=== PATIENT | female | born 1945 | race Caucasian/White ===

== ENCOUNTER 2016-08-06 10:15 | Emergency (ER) | payer MEDICARE, OTHER ==
--- NOTE | 2016-08-06 10:40 | EDPRACDOC ---
- General Information Chief Complaint: Neuro Symptoms/Deficits Stated Complaint: STROLE LIKE SYMPTOMS Time Seen by Provider: 08/06/16 10:30 Home Medications: Home Medications Ezetimibe [Zetia] 10 mg PO DAILY 04/02/14 Isosorbide Mononitrate [Imdur] 30 mg PO DAILY 04/02/14 Lisinopril/Hydrochlorothiazide [Zestoretic 20-12.5 mg Tablet] 1 tab PO DAILY Metoprolol Succinate [Toprol Xl] 50 mg PO DAILY 04/02/14 Aspirin 325 mg PO DAILYWM #100 tab 04/03/14 Citalopram (anti-depressant) [Celexa] 20 mg PO DAILY 07/10/15 Metformin HCl [Glucophage] 500 mg PO DAILY 07/10/15 Meclizine HCl [Antivert] 25 mg PO Q6 PRN #20 tablet 08/06/16 Nitroglycerin Sublingual Tab [NTG (NitroStat Sublingual Tab)] 0.4 mg SL [id number] PRN 08/06/16 Allergies/Adverse Reactions: Allergies Allergy/AdvReac Type Severity Reaction Status Date / Time No Known Allergies Allergy Verified 08/06/16 10:42 - History of Present Illness Onset: MANAGER AGENCY Exact Onset of Symptoms: Unknown HPI: PT COMPLAINS OF RIGHT SIDED, THROBBING HEADACHE OFF/ON SINCE "SOMETIME LAST NIGHT", STATES HEADACHE WOKE HER FROM SLEEP, PT ALSO COMPLAINS OF FEELING DIZZY AND OFF-BALANCE FOR THE LAST COUPLE OF DAYS, TROUBLE WALKING, PT HAS HX OF CVA WITH RESIDUAL RIGHT SIDED WEAKNESS. PT DENIES COMPLAINTS AT THIS TIME, NO EXAC/ AMEL FACTORS. Symptoms Started: Reports: Suddenly, At Rest Symptoms Description: Improved Weakness: Right: Arm, Leg Symptoms: Reports: Imbalance, Vertigo, Weak. Denies: Change of vision, Difficult speech, Faintness, Numbness, Near Syncope, On Med questionable toxic, Syncope, Tinnitus Symptom Severity: Reports: Unable to performs ADL's Relevant History of: Reports: CVA Associated signs and symptoms:: Reports: Headache. Denies: GI Bleed, Chest pain , Diarrhea, Fever, Nausea, Palpitations, Vomiting ED Past Medical History - Patient Medical History Neurological History: Reports: Cerebrovascular Accident Cardiac History: Reports: Hypertension, Congestive Heart Failure, Hypercholesterolemia Musculoskeletal History: Reports: Arthritis Systemic History: Denies: Cancer - Family Medical History Reports: Hypertension (brother and sister), Diabetes (brother and sister), Cardiac Disorders (brother,mom). Denies: Cancer, Stroke - Social Medical History Smoking Status: Never smoker ETOH: None Substance Abuse: None EDM Review of Systems - Review of Systems Constitutional: negative: Chills, Fever Eyes: negative: Blurred Vision, Double Vision Ears: negative: Drainage Throat: negative: Pain Nose: negative: Congestion, Discharge Respiratory: negative: Cough, Shortness of Breath, Wheezing Cardiovascular: negative: Chest Pain, Palpitations Gastrointestinal: negative: Diarrhea, Nausea, Pain, Vomiting Genitourinary: negative: Dysuria, Frequency Neurological: Dizziness, Headache. negative: Numbness, Weakness Musculoskeletal: No Symptoms Reported Integumentary: No Symptoms Reported - Physical Exam Constitutional: Alert (Awake), No apparent distress Oriented to: Time, Person, Place Last recorded Vital Signs: Oxygen Pulse Oxygen Saturation O2 Device Oxygen Flow Rate Fraction of Inspired Oxygen ( FIO2) - HEENT Head: Normal ( normocephalic) Eye Exam: Normal (PERRL, EOMI, Sclera white) Oropharynx: Normal (Pharynx:Moist without exudate,Gums-no swelling) Tympanic Membrane: Normal ENT EAC: Normal TMJ: Normal Nose: No Symptoms Reported (septum midline) Neck: Normal (FROM, trachea at midline) - Respiratory/Cardiovascular Respiratory: Normal - CTA (BBS clear to auscultation without adventitious sounds ) Cardiovascular: Normal (RRR without murmur, gallop or rub) - GI Auscultation: Normal (NABS) Palpation: Normal (Soft,No rebound or guarding, non distended) Tenderness: Non tender Taylor's Sign: Negative - Musculoskeletal Back: Normal (Non-Tender) Extremities: Normal (Normal tone, Pulses 2+ No cyanosis or edema, FROM) - Integumentary Skin: Normal, Warm, Dry Lymphatics: Normal (no adenopathy) - Neurologic Memory Impaired: Normal Motor Function: Normal (Normal tone, Pulses 2+ No cyanosis or edema, FROM) Cranial Nerve: Normal (CN II-X11 intact sensation, strength 5/5) Cerebellar: Normal Mood Description: Normal Perception: Normal NIH Stroke Scale Initial Evaluation Level of Consciousness: Alert LOC- Question: Answers Both Correctly LOC Commands: Both Task Correctly Best Gaze: Normal Visual: No Visual Loss Facial Palsy: Normal Movement Motor Arm LEFT: No Drift Motor Arm RIGHT: No Drift Motor Leg LEFT: No Drift Motor Leg RIGHT: No Drift Limb Ataxia: Absent Sensory: Normal Best Language: No Aphasia Dysarthria: Normal Extinction and Inattention: No Abnormality (Neglect) Score: 0out of42 - Differential Diagnosis Anemia, CVA, Dehydration, Dysrhythmia, Electrolyte disorder, Vertigo - Re-evaluation Re-evaluation 1 Re-evaluation Time: 12:30 (CONT TO COMPLAIN OF HEADACHE AND DIZZINESS) Re-evaluation 2 Re-evaluation Time: 14:39 (FEELS BETTER) - Results 08/06/16 10:36 08/06/16 10:36 08/06/16 12:32 Laboratory Results - last 24 hr 08/06/16 08/06/16 08/06/16 10:36 10:36 10:36 WBC 5.4 RBC 5.22 Hgb 15.7 Hct 46.6 MCV 89 MCH 30.0 MCHC 33.6 RDW 13.4 Plt Count 165 MPV 9.0 Neut % (Auto) 68.5 Lymph % (Auto) 22.4 [place] % (Auto) 7.6 Eos % (Auto) 0.9 Baso % (Auto) 0.6 Absolute Neuts (auto) 3.67 Absolute Lymphs (auto) 1.19 PT 10.3 INR 1.0 APTT 18.9 L Sodium 140 Potassium 4.6 Chloride 103 Carbon Dioxide 22 Anion Gap 20 H BUN 24 H Creatinine 0.70 Estimated GFR (MDRD) > 60 Glucose 157 H Calculated Osmolality 276 Calcium 9.6 Total Bilirubin 0.6 AST 29 ALT 40 Alkaline Phosphatase 71 Troponin I < 0.01 [id number] Pept 200 Total Protein 7.5 Albumin 4.3 Lipase 62 - EKG EKG #1 EKG Time: 10:34 -: Yes EKG interpreted by me Rate: bpm: 68 Media: Normal Rhythm: NSR Block: None Hypertrophy: None ST: Normal Comparison: 07/10/15 (NO CHANGE) - Diagnostic Imaging CT HEAD Image interpreted by: Radiologist CT HEAD WITHOUT CONTRAST TECHNIQUE: Contiguous axial images were obtained from the base of the skull through the vertex without intravenous contrast. COMPARISON: 03/24/2014 head CTA FINDINGS: There is no evidence of acute cortical infarct, intracranial hemorrhage, mass, midline shift, or extra-axial fluid collection. Chronic infarcts are again seen in the left thalamus, left caudate, and left cerebellum. Periventricular white-matter hypodensities are nonspecific but compatible with mild chronic small vessel ischemic disease. Mild generalized cerebral atrophy is within normal limits for age. Prior bilateral cataract extraction is noted. 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 The visualized paranasal sinuses and mastoid air cells are clear. No skull lesion. Carotid siphon atherosclerosis. IMPRESSION: 1. No evidence of acute intracranial abnormality. 2. Chronic ischemic changes as above. CXR Image interpreted by: Radiologist PORTABLE CHEST 1 VIEW COMPARISON: 04/02/2014. FINDINGS: Normal cardiomediastinal silhouette. Clear lung [place] with mild bronchitic change. No infiltrates or failure. No effusion or pneumothorax. BILATERAL shoulder DJD. IMPRESSION: No active disease. No change from priors. Decision Time to Discharge: 14:43 - Departure Disposition: Home Condition: Stable Final Diagnosis: Vertigo Instructions: Vertigo (ED) Education/Counseling Given To: Patient Education/Counseling Given Regarding: Diagnosis, Treatment, Prognosis, Follow Up Referrals: Samuel Morrsi MD [Primary Care Provider] - One Week Prescriptions: Meclizine HCl [Antivert] 25 mg PO Q6 PRN #20 tablet PRN Reason: Dizziness Additional Instructions: REST, DRINK PLENTY OF FLUIDS, RETURN TO THE ED FOR ANY WORSENING SYMPTOMS OR CONCERNS.
[2016-08-06] MEDS ORDERED: SODIUM CHLORIDE 0.9% 10 ML FLUSH FLUSH PRN (10:41)
[2016-08-06 10:42] VITALS: BMI 30.2
[2016-08-06 10:47] VITALS: TEMP 98.6
[2016-08-06 10:56] LABS: AUTOMATED BASOPHIL 0.6 % (0-2); AUTOMATED EOSINOPHIL 0.9 % (0-5); AUTOMATED LYMPH 22.4 % (17-44); AUTOMATED MONOCYTE 7.6 % (3-10); AUTOMATED NEUTROPHIL 68.5 % (45-76)
[2016-08-06 11:08] LABS: PARTIAL THROMB. TIME 18.9 SEC (22-35)
--- NOTE | 2016-08-06 11:17 | DIRPT ---
CLINICAL DATA: Headache which began yesterday. EXAM: PORTABLE CHEST 1 VIEW COMPARISON: 04/02/2014. FINDINGS: Normal cardiomediastinal silhouette. Clear lung [place] with mild bronchitic change. No infiltrates or failure. No effusion or pneumothorax. BILATERAL shoulder DJD. IMPRESSION: No active disease. No change from priors. Electronically Signed By: Arsenio Berger M.D. On: 08/06/2016 11:15
--- NOTE | 2016-08-06 11:34 | DIRPT ---
CLINICAL DATA: Right-sided weakness, dizziness, and headache this morning. History of cerebral aneurysm. EXAM: CT HEAD WITHOUT CONTRAST TECHNIQUE: Contiguous axial images were obtained from the base of the skull through the vertex without intravenous contrast. COMPARISON: 03/24/2014 head CTA FINDINGS: There is no evidence of acute cortical infarct, intracranial hemorrhage, mass, midline shift, or extra-axial fluid collection. Chronic infarcts are again seen in the left thalamus, left caudate, and left cerebellum. Periventricular white-matter hypodensities are nonspecific but compatible with mild chronic small vessel ischemic disease. Mild generalized cerebral atrophy is within normal limits for age. Prior bilateral cataract extraction is noted. 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 The visualized paranasal sinuses and mastoid air cells are clear. No skull lesion. Carotid siphon atherosclerosis. IMPRESSION: 1. No evidence of acute intracranial abnormality. 2. Chronic ischemic changes as above. Electronically Signed By: Deepak Lowe M.D. On: 08/06/2016 11:31
[2016-08-06 11:36] LABS: BLOOD UREA NITROGEN 24 MG/DL (7-17); CALCIUM 9.6 MG/DL (8.4-10.2); CALCULATED OSMOLALITY 276 MOs/Kg (270-290); CHLORIDE 103 mEq/L (98-107); GLUCOSE 157 MG/DL (70-99); SODIUM LEVEL 140 mEq/L (137-146); TOTAL PROTEIN 7.5 G/DL (6.3-8.2)
[2016-08-06] MEDS ORDERED: ACETAMINOPHEN 325 MG/TAB TABLET PO ONE (12:33)
[2016-08-06] MEDS ORDERED: MECLIZINE 25 MG TAB PO ONE (12:33)
[2016-08-06 14:42] VITALS: BP 158/75; PULSE 67
== END 2016-08-06 15:15 | disposition home or self-care (01) ==
LOC: ED 10:15
DX: R42 Dizziness and giddiness (principal); I10 Essential (primary) hypertension; I50.9 Heart failure, unspecified; E78.00 Pure hypercholesterolemia, unspecified; I69.951 Hemiplegia and hemiparesis following unspecified cerebrovascular disease affecting right dominant side; Z79.899 Other long term (current) drug therapy; Z79.82 Long term (current) use of aspirin
CPT/HCPCS: 36415; 70450; 71010; 80053; 83690; 83880; 84484; 85025; 85610; 85730; 93005; 99285; A9270; J3490